=== PATIENT | male | born 1990 | race Caucasian/White ===

== ENCOUNTER 2022-05-11 08:14 | Outpatient (REF) | payer OTHER, SELFPAY ==
[2022-05-11 11:38] LABS: MANUAL DIFF FLAG NO
[2022-05-11 11:44] LABS: Basophils Percent Auto 0.7 % (0-2); Eosinophils Absolute Auto 0.2 X10*3/uL (0.0-0.4); Eosinophils Percent Auto 5.6 % (0-4); Hematocrit 47.7 % (42.0-52.0); Hemoglobin 16.3 g/dl (14.0-18.0); Lymphocytes Absolute Auto 1.7 X10*3/uL (1.2-4.9); Lymphocytes Percent Auto 39.6 % (20-40); Mean Corpuscular HGB Conc 34.2 g/dl (31.0-36.0); Mean Platelet Volume 9.7 fL (9.4-12.4); Monocytes Absolute Auto 0.4 X10*3/uL (0.1-1.2); Monocytes Percent Auto 9.1 % (2-11); Neutrophils Absolute Auto 1.9 x10*3/uL (2.0-8.3); Platelet Count 246 X10*3/uL (160-400); Red Blood Count 5.82 X10*6/uL (4.60-5.80); Red Cell Distribution Width 11.6 % (11.0-16.0); White Blood Count 4.3 X10*3/uL (4.8-10.8)
[2022-05-11 14:23] LABS: Thyroid Stimulating Hormone 1.58 uIU/mL (0.32-4.0); Vitamin D 25-OH Total 20.2 ng/mL (>30)
[2022-05-11 14:42] LABS: Alanine Aminotransferase 33 U/L (0-40); Albumin Level 4.5 g/dL (3.5-5.0); Alkaline Phosphatase 73 U/L (39-117); Anion Gap 11 (12-20); Aspartate Amino Transferase 24 U/L (5-37); Bilirubin Total 0.9 mg/dL (0.0-1.0); Blood Urea Nitrogen 14 mg/dL (9-16); Calcium 9.7 mg/dL (8.4-10.2); Carbon Dioxide 25 mmol/L (22-29); Chloride 109 mmol/L (96-108); Cholesterol 201 mg/dL; Estimated Glomerular Filt Rate > 60; Glucose Fasting 102 mg/dL (60-99); HDL Cholesterol 36 mg/dL; LDL Cholesterol Calculated 151 mg/dl; Potassium 4.3 mmol/L (3.3-5.1); Sodium 141 mmol/L (135-145); Total Protein 7.1 g/dL (6.5-8.0); Triglycerides 71 mg/dL
== END 2022-05-11 08:15 | disposition home or self-care (01) ==
LOC: HO.HMGCLDS 08:14
PROVIDERS: PCP Internal Medicine; Visit Provider Internal Medicine
DX: Z00.00 Encounter for general adult medical examination without abnormal findings (principal); R13.10 Dysphagia, unspecified
CPT/HCPCS: 36415; 80053; 80061; 82306; 84443; 85025

== ENCOUNTER 2022-06-05 08:10 | Outpatient (REF) | payer SELFPAY ==
--- NOTE | ~2022-06-05 | FL_ITS ---
PROCEDURE: FL BARIUM SWALLOW CLINICAL INFORMATION: Dysphagia. COMPARISON: None TECHNIQUE: Barium swallow examination is performed using fluoroscopic evaluation in addition to multiple fluoroscopic spot views. The patient is imaged both upright and prone and using both thick and thin sulfate along with effervescent granules. Fluoroscopy time: 1.6 minutes DAP: 14.754 Gy-cm2 Images: 46 FINDINGS: Following oral administration of thick barium, barium-coated turkey and thin barium in upright view there is normal propagation of bolus from the oral cavity through the pharynx, esophagus into stomach without any evidence of obstruction, narrowing or stricture. On placing patient prone lying and oral administration of thin barium there is good distention of the entire esophagus without any intraluminal narrowing or extrinsic compression. Transient hiatal hernia is present. FL/FL barium swallow IMPRESSION: Unremarkable barium swallow.
== END 2022-06-05 08:11 | disposition home or self-care (01) ==
LOC: HO.XRAY 08:10
PROVIDERS: PCP Internal Medicine; Visit Provider Internal Medicine
DX: R13.10 Dysphagia, unspecified (principal)
CPT/HCPCS: 74220

== ENCOUNTER 2022-10-03 09:23 | Day surgery (SDC) | payer BC, SELFPAY ==
--- NOTE | 2022-10-02 14:30 | HO.ANESPROP2 ---
Documented by User: Francisca Bassett NP 10/02/22 14:31 HPI - Anesthesia Eval Consult details Narrative: 32yo M for Upper Endoscopy with Balloon Dilitation [facility] Surgical History Surgical History H/O hand surgery History of surgery on arm Social History Social History Patient Tobacco Use Status: Never used Tobacco Use of substances other than those prescribed or required for medical reasons: No Are you DNR?: No Advance Directives: No Advance Directives Information Provided: Yes Meds Allergies Allergy/AdvReac Type Severity Reaction Status Date / Time shellfish derived Allergy Severe Anaphylaxis Verified 09/30/22 16:05 Home Medications Medication Instructions Recorded Confirmed Last Taken Type epinephrine 0.3 mg/0.3 mL IM DAILY PRN Anaphylaxis 10/02/22 10/02/22 Unknown History injection, auto-injector Exam Exam Date and Time: October 02, 2022 1430 Pertinent Lab Results Pertinent Lab Results: Laboratory Tests 05/11/22 05/11/22 08:22 08:22 WBC 4.3 L Hgb 16.3 Hct 47.7 Plt Count 246 Sodium 141 Potassium 4.3 Chloride 109 H Carbon Dioxide 25 BUN 14 Creatinine 1.07 Assessment and Plan Assessment Anesthesia Assessment: Chart Reviewed Documented by User: Daisy John MD 10/03/22 10:34 [facility] Family History Family history of problems with anesthesia: No Surgical History Surgical History H/O hand surgery History of surgery on arm History of Problems with Anesthesia: No Social History Social History Patient Tobacco Use Status: Never used Tobacco Use of substances other than those prescribed or required for medical reasons: No Are you DNR?: No Advance Directives: No Advance Directives Information Provided: Yes Meds Allergies Allergy/AdvReac Type Severity Reaction Status Date / Time shellfish derived Allergy Severe Anaphylaxis Verified 09/30/22 16:05 Home Medications Medication Instructions Recorded Confirmed Last Taken Type epinephrine 0.3 mg/0.3 mL IM DAILY PRN Anaphylaxis 10/02/22 10/02/22 Unknown History injection, auto-injector Exam Airway Mallampati Class: I TM Dist: >3cm Neck ROM: Full Heart: rr Lungs: cts Assessment and Plan Assessment Anesthesia Assessment: Anesthesia Plan Discussed Final Anesthetic Review Family History of Problems with Anesthesia: No History of Problems with Anesthesia: No NPO: Yes ASA Class: II Final Preanesthetic Review: No Changes in Pt Med Stat, Meds/Allgs Chart Reviewed, Consent Obtained/Reviewed and Anes Risks/Benef Reviewed Patient Risk: Low Procedure Risk: Low Anesthetic Plan Anesthetic Plan: MAC: Disposition: Standard PACU
[2022-10-03 09:31] VITALS: BMI 25.8
[2022-10-03 09:46] VITALS: BP 121/79; PULSE 56; RESP 16; TEMP 36.3; O2SAT 98; BMI 25.8
[2022-10-03] MEDS: Lactated Ringers 1,000 ML 100 ML IVCONT (09:52)
[2022-10-03 11:39] VITALS: BP 97/39; PULSE 76; TEMP 37.2; O2SAT 98
--- NOTE | 2022-10-03 11:47 | P.BOP_ITS ---
Brief Operative Note Date of Service: 10/03/22 Pre-op diagnosis: Dysphagia Post-op diagnosis: other (GERD, Hiatal hernia, R/O EoE) Procedure: EGD with balloon dilation with 18 to 19mm balloon, and biopsies Surgeon: Tavo Peres Anesthesia: MAC Was an Customer Engagement Manager used for this Procedure?: No Estimated blood loss (mL): 3.0 Pathology: other (A. Esophagus 20-25cm) Condition: stable Disposition: PACU
[2022-10-03 11:54] VITALS: BP 110/68; PULSE 64; RESP 16; TEMP 37.2; O2SAT 98
--- NOTE | 2022-10-03 22:53 | OP_ITS ---
DATE OF SERVICE: 10/03/2022 SURGEON: Tavo Peres MD INDICATIONS: The patient present for evaluation of dysphagia. Full consent was obtained from him for this, including risks of bleeding and perforation. PREOPERATIVE DIAGNOSIS: Dysphagia. POSTOPERATIVE DIAGNOSIS: PROCEDURE PERFORMED: ESTIMATED BLOOD LOSS: COMPLICATIONS: ANESTHESIA: Monitored anesthesia care. ASSISTANTS: SPECIMENS: POSTOPERATIVE DIAGNOSES: Dysphagia, gastroesophageal reflux, small hiatal hernia, rule out eosinophilic esophagitis. PROCEDURE IN DETAIL: The patient was placed in the left lateral decubitus position. The Olympus video gastroscope was passed in the posterior oropharynx and upper esophagus under direct vision. The scope was passed slowly to the distal esophagus. The gastroesophageal junction appeared at 36 cm. There was some evidence of some edema and erythema, but no definitive evidence of Berumen's esophagus, esophagitis, esophageal ring, nor esophageal stricture. The scope easily entered the stomach. There is a small hiatal hernia. The scope was advanced to the pylorus and the duodenum was cannulated to the descending portion. The duodenum including the bulb appeared normal without mass or ulceration. The scope was withdrawn back in the stomach. The gastric antrum and body appeared normal with good peristalsis. The scope was retroflexed visualizing the proximal stomach carefully which appeared normal, without any sign of mass nor ulceration. The scope was straightened out and withdrawn back to the esophagus. Given his symptomatology, I did use a [place] scientific incremental balloon to dilate the gastroesophageal junction from 18 mm to 19 mm at the recommended pressure for between 30 and 60 seconds each. Post-dilation, there was definitely some heme and some disruption of the EG junction. The scope was withdrawn through the remainder of the esophagus. At the very proximal esophagus there did appear to be some of what appeared to be furrowing of the mucosa, but without any esophageal rings. Biopsies were obtained between 20 and 25 cm. The scope was withdrawn from the patient. He tolerated the procedure well and was returned to the recovery area in stable condition. IMPRESSION: 1. Small hiatal hernia, gastroesophageal reflux, status post balloon dilation of gastroesophageal junction. 2. Rule out eosinophilic esophagitis. PLAN: Results of biopsies will be checked. He was advised not to use any aspirin or NSAIDs for at least 1 week. He will start omeprazole 40 mg daily for at least 1 month to see if that gives him any symptomatic improvement as well. Depending on the biopsy findings and his clinical course, he may need esophageal motility studies if his dysphagia persists. He will otherwise see me in the office for followup. PROCEDURES PERFORMED: Esophagogastroduodenoscopy with balloon dilation of gastroesophageal junction and biopsies. MD DIYA Oneil/LESLEY / [id number] MTDD
== END 2022-10-03 12:45 | disposition home or self-care (01) ==
PROVIDERS: PCP Internal Medicine; Visit Provider Internal Medicine
PROC: (CPT 43249; principal; 2022-10-03 10:30)
DX: R13.19 Other dysphagia (principal); K20.80 Other esophagitis without bleeding; K21.9 Gastro-esophageal reflux disease without esophagitis; K44.9 Diaphragmatic hernia without obstruction or gangrene
CPT/HCPCS: 43249; 43239; 88305; C1726

== ENCOUNTER 2024-03-20 09:34 | Outpatient (REF) | payer BC, SELFPAY ==
[2024-03-20 13:20] LABS: MANUAL DIFF FLAG NO
[2024-03-20 13:33] LABS: Basophils Absolute Auto 0.1 X10*3/uL (0.0-0.2); Basophils Percent Auto 0.9 % (0-2); Eosinophils Absolute Auto 0.3 X10*3/uL (0.0-0.4); Eosinophils Percent Auto 4.4 % (0-4); Hemoglobin 16.1 g/dl (14.0-18.0); Imm Gran Abs Auto 0.02 X10*3/uL (0.00-0.03); Imm Gran Pct Auto 0.4 % (0.0-0.4); Lymphocytes Absolute Auto 1.4 X10*3/uL (1.2-4.9); Mean Corpuscular HGB Conc 34.3 g/dl (31.0-36.0); Mean Corpuscular Hemoglobin 29.3 pg (27.0-33.0); Mean Corpuscular Volume 85.6 fL (80.0-98.0); Mean Platelet Volume 9.5 fL (9.4-12.4); Monocytes Absolute Auto 0.5 X10*3/uL (0.1-1.2); Monocytes Percent Auto 8.7 % (2-11); Neutrophils Absolute Auto 3.4 x10*3/uL (2.0-8.3); Neutrophils Percent Auto 60.6 % (45-73); Platelet Count 269 X10*3/uL (160-400); Red Blood Count 5.49 X10*6/uL (4.60-5.80); Red Cell Distribution Width 11.9 % (11.0-16.0); White Blood Count 5.6 X10*3/uL (4.8-10.8)
[2024-03-20 14:19] LABS: Alanine Aminotransferase 38 U/L (0-40); Albumin Level 4.5 g/dL (3.5-5.0); Alkaline Phosphatase 68 U/L (39-117); Aspartate Amino Transferase 31 U/L (5-37); Bilirubin Total 0.6 mg/dL (0.0-1.0); Blood Urea Nitrogen 16 mg/dL (9-16); Cholesterol 196 mg/dL (<200); Estimated Glomerular Filt Rate > 60; Glucose Fasting 102 mg/dL (60-99); HDL Cholesterol 46 mg/dL (>40); LDL Cholesterol Calculated 133 mg/dL (<100); Thyroid Stimulating Hormone 1.28 uIU/mL (0.32-4.0); Total Protein 7.7 g/dL (6.5-8.0); Triglycerides 86 mg/dL (<150); Vitamin D 25-OH Total 55.1 ng/mL (>30)
[2024-03-20 14:36] LABS: Anion Gap 10 (12-20); Carbon Dioxide 26 mmol/L (22-29); Chloride 108 mmol/L (96-108); Potassium 4.1 mmol/L (3.3-5.1); Sodium 140 mmol/L (135-145)
== END 2024-03-20 09:35 | disposition home or self-care (01) ==
LOC: HO.HMGCLDS 09:34
PROVIDERS: PCP Internal Medicine; Visit Provider Internal Medicine
DX: Z00.00 Encounter for general adult medical examination without abnormal findings (principal); R13.10 Dysphagia, unspecified; E78.00 Pure hypercholesterolemia, unspecified; E55.9 Vitamin D deficiency, unspecified; J30.9 Allergic rhinitis, unspecified
CPT/HCPCS: 36415; 80053; 80061; 82306; 84443; 85025

== ENCOUNTER 2025-03-10 10:15 | Outpatient (AMB) | payer BC, SELFPAY ==
--- NOTE | 2025-03-10 10:17 | A.OFFPC_ITS ---
Vital Signs 03/10/25 10:24 Height 5 ft 11.54 in Weight 203 lb BMI 27.9 BP 117/73 Blood Pressure Location Lt brachial Position Sitting Pulse 64 Pulse Source Pulse Oximeter Temp 97.2 F Temp Source Temporal Artery Scan Pulse Oximetry (%) 98 Oxygen Delivery Method Room Air Intake Visit Reasons: physical Intake Note: has bump under left eye x 9 months. Accompanied by: Self / Same As Patient Allergies shellfish derived Allergy (Severe, Verified 03/10/25 10:55) Anaphylaxis Medication List - Last Reconciled 03/10/25 by Quita Langley PA-C epinephrine 0.3 mL IM DAILY PRN omeprazole 20 mg PO QAM Tobacco use date assessed: 03/10/25 Dental Screening Dental Screen Date: 03/10/25 Did you have a dental visit in the last 12 months?: No HPI physical HPI Details The patient is a 35-year-old male presenting for a routine physical examination. He reports noticing a skin condition under his eyes since the middle to end of last winter, which may be telangiectasia, a benign condition involving small dilated blood vessels. The patient has a history of hyperlipidemia, with LDL cholesterol levels decreasing from 151 mg/dL in 2021 to 133 mg/dL currently. He is advised to manage this through dietary changes rather than medication at this time. A possible heart murmur was noted during auscultation, characterized by a strong lub-dub sound, potentially related to cholesterol levels. An ultrasound of the heart is planned to further evaluate this finding. The patient has a shellfish allergy, for which he carries an EpiPen. He reports no issues with medication adherence. Family history is significant for breast cancer on the maternal side, with both his aunt and grandmother affected. There is also a family history of prostate issues, prompting the decision to conduct a PSA screening. 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 - Family status: with a child ex pected next month. - Family planning: Expecting a baby boy. [facility] Medical History (Updated 03/10/25 @ 10:58 by Quita Langley PA-C) Preventative health care History of allergy to shellfish Hyperlipidemia LDL goal <100 Annual physical exam GERD (gastroesophageal reflux disease) Heart murmur Telangiectasia Surgical History H/O hand surgery History of surgery on arm Family History Mother No problems noted. Father Aorta disorder Prostate cancer Social History Housing: House Patient Tobacco Use Status: Never used Tobacco service: No Current occupational status: employed Cognitive needs: No Hearing needs: No Vision needs: No Questionnaire PHQ-9 Over the last 2 weeks, how often have you been bothered by any of the following problems? 1. Little interest or pleasure in doing things: not at all 2. Feeling down, depressed, or hopeless: not at all 3. Trouble falling or staying asleep, or sleeping too much: not at all 4. Feeling tired or having little energy: not at all 5. Poor appetite or overeating: not at all 6. Feeling bad about yourself - or that you are a failure or have let yourself or your family down: not at all 7. Trouble concentrating on things, such as reading the newspaper or watching television: not at all 8. Moving or speaking so slowly that other people could have noticed. Or the opposite - being so fidgety or restless that you have been moving around a lot more than usual: not at all 9. Thoughts that you would be better off or of hurting yourself in some way: not at all Total score: 0 Depression Screening Interpretation: Negative Depression Screening Done: Yes 36102 - PHQ-9 Billing: Yes Source: Developed by Drs. Tavo Mckeon, Zuri Enrique, Reggie Ellis and colleagues, with an educational willie from [employer]. Thrive Questionnaire Date Thrive assessed: 03/10/25 I am a: Patient What is your living situation today?: I have a steady place to live Within the past 12 months, did the food you bought not last and you didn't have the money to get more?: Never true Within the past 12 months, did you worry whether your food would run out before you got money to buy more?: Never true Do you have trouble paying for medicines?: No Do you have trouble getting transportation to medical appointments?: No Do you have trouble paying your heating and electricity bill?: No Do you have trouble taking care of your child, family member or friend?: No Do you have trouble with day-to-day activities such as bathing, preparing meals, shopping, managing finances, etc.?: No Are you currently unemployed and looking for a job?: No Are you interested in more education?: No Please select the resources that you would like help with: None THRIVE Score: 0 AUDIT C Alcohol Use Questionnaire (AUDIT-C) 1. How often do you have a drink containing alcohol?: Monthly or less Total Score: 1 Score Reviewed/Action Taken: No JOCELYNE-7 AMB Questionnaire JOCELYNE-7 Date JOCELYNE - 7 assessed: 03/10/25 Feeling nervous, anxious, or on edge: 0 = Not at all Not being able to stop or control worryin = Not at all Worrying too much about different things: 0 = Not at all Trouble relaxin = Not at all Being so restless that it is hard to sit still: 0 = Not at all Becoming easily annoyed or irritable: 0 = Not at all Feeling afraid as if something awful might happen: 0 = Not at all Total JOCELYNE-7 score (0-4 normal; 5-9 mild; 10-14 moderate; 15-21 severe): 0 Source: Developed by Drs. Tavo Mckeon, Zuri Enrique, Reggie Ellis and colleagues, with an educational willie from [employer]. JOCELYNE-7 Assessment Billing JOCELYNE-7 Assessment Tool: JOCELYNE-7 Assessment 07495 Review of Systems Const Details: - General: Denies unintentional weight loss. - Cardiovascular: Denies chest pain. - Respiratory: Denies dyspnea on exertion. - Gastrointestinal: Denies black or bloody stools. - Genitourinary: Denies hematuria or difficulty urinating. - Dermatological: Reports skin condition under eyes since last winter. - Neurological: Denies recent falls. All systems reviewed & are unremarkable except as noted in HPI and below Physical exam (Primary Care) Vital Signs: Last Vital Signs Temp 97.2 F 03/10/25 10:24 Pulse 64 03/10/25 10:24 BP 117/73 03/10/25 10:24 Pulse Ox 98 03/10/25 10:24 Oxygen Delivery Method Room Air 03/10/25 10:24 Care Plan Goal for BP management: <140/90 at Goal BMI result Body Mass Index 27.9 BMI Assessment/Plan discussion: High BMI High, discussed plan: lifestyle, weight reduction, dietary, physical activity, alcohol moderation and other Tobacco/Smoking Status: Tobacco use Status Tobacco use date assessed 03/10/25 03/10/25 10:21 Patient Tobacco Use Status Never used Tobacco 03/10/25 10:21 PHQ-9: PHQ-9 Score PHQ-9: Total score 0 03/10/25 10:32 Depression Screening Interpretation: Negative Thrive Assessment: Date of Thrive Assessment Date Thrive assessed 03/10/25 03/10/25 10:21 Const Other: Appearance: Alert. Oriented X3. No acute distress. Head: Normal external exam. Normocephalic. Atraumatic. Eyes: Pupils are equal, round, and reactive to light. Extraocular movements intact. Conjunctiva and sclera normal. Eyelids normal. Ears: External auditory canal normal. Tympanic membranes normal. Throat: Pharynx normal. Uvula midline. Moist mucous membranes. Neck: Normal inspection. Neck supple. Full range of motion. No adenopathy. Thyroid Normal. No meningeal signs. No neck mass noted. Cardiovascular: Normal heart rate and rhythm. Heart sound normal. No murmurs noted. Pulses normal throughout. However, a possible heart murmur was noted, with a suggestion of thickening related to cholesterol. An ultrasound of the heart is recommended. Respiratory: No respiratory distress. Painless inspiration. Breath sounds normal. No wheezes/rales/rhonchi noted. Chest nontender. No accessory muscle usage noted or decreased air movement noted. Abdomen: Soft and nontender. Bowel sounds normal in all 4 quadrants. No distention noted. No organomegaly noted. No visible injury noted. Back: No costovertebral angle tenderness. Full range of motion noted. Skin: Skin warm and dry. Normal skin color. Normal skin turgor. Telangiectasia u nder left periorbital area. No additional rashes/lesions/lacerations noted. Extremities: No lower extremity edema. Extremities exhibit normal range of motion. Extremities nontender. Neuro: Oriented X 3. No motor deficit. No sensory deficit. Reflexes normal. Office Procedures Flu Questionnaire Does the patient have a severe egg allergy?: No Does the patient have severe life threatening allergies?: No Does the patient have a fever or illness today?: No Has the patient ever had Guillain-Gruver Syndrome?: No Has the patient ever had any past reaction to a flu shot?: No Immunizations Fluarix [id number] (PF) 45 mcg (15 mcg x 3)/0.5 mL IM syringe Performing Provider: Quita Langley PA-C [facility] Documented (not given) by: Teresa Ackerman CMA on 03/10/25 10:33 Reason Not Given: Patient Refused Results Reviewed Results Reviewed: - Labs: Previous CBC normal, fasting glucose slightly elevated at 102 mg/dL, LDL cholesterol decreased from 151 mg/dL to 133 mg/dL. Coding Level of Care Code New Pt Level 4 (21935) New Pt Prev Care 18-39yr(51495 Diagnoses Annual physical exam Z00.00 Telangiectasia I78.1 Hyperlipidemia LDL goal <100 E78.5 Heart murmur R01.1 GERD (gastroesophageal reflux disease) K21.9 History of allergy to shellfish Z91.013 Preventative health care Z00.00 Additional Codes PHQ-9 - 40695 - PHQ-9 Billing: Yes ([id number]) JOCELYNE-7 Assessment Billing - JOCELYNE-7 Assessment Tool: JOCELYNE-7 Assessment 37828 ([id number]) Time Spent (min) 45 Assessment & Plan Assessment & Plan (1) Annual physical exam: Code(s): Z00.00 - Encounter for general adult medical examination without abnormal findings Category: Medical (2) Telangiectasia: Code(s): I78.1 - Nevus, non-neoplastic Category: Medical Plan: The patient will be referred to dermatology for further evaluation of the skin condition under his eyes, suspected to be telangiectasia. (3) Hyperlipidemia LDL goal <100: Code(s): E78.5 - Hyperlipidemia, unspecified Category: Medical Plan: The patient is advised to manage hyperlipidemia through dietary modifications, with a focus on reducing intake of sugars and refined carbohydrates. If cholesterol levels remain elevated, pharmacological intervention may be considered in the future. (4) Heart murmur: Code(s): R01.1 - Cardiac murmur, unspecified Category: Medical Plan: An ultrasound of the heart will be ordered to evaluate the possible heart murmur detected during auscultation. (5) GERD (gastroesophageal reflux disease): Code(s): K21.9 - Gastro-esophageal reflux disease without esophagitis Category: Medical Plan: Patient reports he needs a new referral to Gastroenterology for his chronic medical condition GERD. Referral placed at this time. Condition is chronic and stable. (6) History of allergy to shellfish: Code(s): Z91.013 - Allergy to seafood Category: Medical Plan: The patient should continue carrying an EpiPen for his shellfish allergy. Refill sent at this time. (7) Preventative health care: Code(s): Z00.00 - Encounter for general adult medical examination without abnormal findings Category: Medical Plan: A PSA screening will be conducted due to the patient's family history of prostate issues. Plan Plan Patient was informed and verbally consented to the use of an ambient scribe for clinic note documentation during this visit. 1. Telangiectasia The patient will be referred to dermatology for further evaluation of the skin condition under his eyes, suspected to be telangiectasia. 2. Hyperlipidemia The patient is advised to manage hyperlipidemia through dietary modifications, with a focus on reducing intake of sugars and refined carbohydrates. If cholesterol levels remain elevated, pharmacological intervention may be considered in the future. 3. Possible Heart Murmur An ultrasound of the heart will be ordered to evaluate the possible heart murmur detected during auscultation. 4. Shellfish Allergy The patient should continue carrying an EpiPen for his shellfish allergy. 5. Preventative Care: Psa Screening A PSA screening will be conducted due to the patient's family history of prostate issues. During the visit, we discussed the patient's skin condition, which may be telangiectasia, and the plan to refer him to dermatology for further evaluation. We reviewed his hyperlipidemia, emphasizing dietary changes to manage cholesterol levels and considering medication if necessary in the future. A possible heart murmur was noted, and an ultrasound of the heart will be ordered to investigate further. The patient was advised to continue carrying an EpiPen for his shellfish allergy. Given his family history, a PSA screening was recommended to monitor for prostate issues. Orders: Orders Influenza [id number] Immunization Today Z23 - Encounter for immunization Comprehensive [place]. Panel Fast Today Z00.00 - Encounter for general adult medical examination without abnormal findings Hemoglobin A1c Today Z00.00 - Encounter for general adult medical examination without abnormal findings Lipid Panel Today Z00.00 - Encounter for general adult medical examination without abnormal findings Magnesium Today Z00.00 - Encounter for general adult medical examination witho ut abnormal findings Vitamin B12 and Folate Today Z00.00 - Encounter for general adult medical examination without abnormal findings Vitamin D 25-OH Total Today Z00.00 - Encounter for general adult medical examination without abnormal findings PSA,Total (Free>4and<10) Today Z00.00 - Encounter for general adult medical examination without abnormal findings CA echo transthoracic complete Today R01.1 - Cardiac murmur, unspecified C Reactive Protein Today Z00.00 - Encounter for general adult medical examination without abnormal findings Complete Blood Count Auto Diff Today Z00.00 - Encounter for general adult medical examination without abnormal findings Liver Panel Today Z00.00 - Encounter for general adult medical examination without abnormal findings TSH reflex Free T4 Today Z00.00 - Encounter for general adult medical examination without abnormal findings UA CC w/rflx Micro + Cult Today Z00.00 - Encounter for general adult medical examination without abnormal findings Referrals Gastroenterology Referral K21.9 - Gastro-esophageal reflux disease without esophagitis Dermatology Referral I78.1 - Nevus, non-neoplastic Medications: Changed From epinephrine IM DAILY PRN To epinephrine 0.3 mL IM DAILY PRN 2 ea 3RF Anaphylaxis Patient Instructions: - Schedule an appointment with dermatology for evaluation of the skin condition under your eyes. - Follow dietary recommendations to manage cholesterol levels, focusing on reducing sugars and refined carbohydrates. - Continue carrying an EpiPen for shellfish allergy. - Attend the scheduled PSA screening due to family history of prostate issues. - Undergo the ordered ultrasound of the heart to evaluate the possible murmur. - Complete fasting blood work as instructed, avoiding food and drink for 10-12 hours prior.
[2025-03-10 10:24] VITALS: BP 117/73; PULSE 64; TEMP 36.2; O2SAT 98; BMI 27.9
== END 2025-03-10 10:54 | disposition home or self-care (01) ==
LOC: HO.HMCSH 10:15
PROVIDERS: PCP Physician Assistant Medical; Visit Provider Physician Assistant Medical
DX: Z00.00 Encounter for general adult medical examination without abnormal findings (principal); R01.1 Cardiac murmur, unspecified; I78.1 Nevus, non-neoplastic; E78.5 Hyperlipidemia, unspecified; K21.9 Gastro-esophageal reflux disease without esophagitis; Z91.013 Allergy to seafood

== ENCOUNTER → 2025-03-10 10:15 | Outpatient (BNVA) | payer BC, SELFPAY | PROVIDERS: PCP Physician Assistant Medical; Visit Provider Physician Assistant Medical | DX: Z00.00 Encounter for general adult medical examination without abnormal findings (principal); E78.5 Hyperlipidemia, unspecified; I78.1 Nevus, non-neoplastic; R01.1 Cardiac murmur, unspecified; K21.9 Gastro-esophageal reflux disease without esophagitis; Z91.013 Allergy to seafood; Z20.821 Contact with and (suspected) exposure to Zika virus | CPT/HCPCS: 96127 ==

== ENCOUNTER 2025-04-16 07:11 | Outpatient (REF) | payer BC, SELFPAY ==
[2025-04-16 10:04] LABS: MANUAL DIFF FLAG NO
[2025-04-16 10:14] LABS: Appearance Urine Clear; Glucose Urine UA Negative (Negative); Hematocrit 46.2 % (42.0-52.0); Hemoglobin 15.8 g/dl (14.0-18.0); Imm Gran Abs Auto 0.01 X10*3/uL (0.00-0.03); Imm Gran Pct Auto 0.2 % (0.0-0.4); Lymphocytes Absolute Auto 1.4 X10*3/uL (1.2-4.9); Mean Corpuscular HGB Conc 34.2 g/dl (31.0-36.0); Mean Corpuscular Hemoglobin 28.9 pg (27.0-33.0); Mean Corpuscular Volume 84.6 fL (80.0-98.0); NRBC Abs Auto 0.000 X10*3/uL (0.0-0.012); NRBC Pct Auto 0.0 /100WBC (0.0-0.2); PH 7.0 (5.0-9.0); Platelet Count 253 X10*3/uL (160-400); Red Blood Count 5.46 X10*6/uL (4.60-5.80); Specific Gravity - Urine 1.025 (1.005-1.025); White Blood Count 4.1 X10*3/uL (4.8-10.8)
[2025-04-16 10:57] LABS: PSA,Total (Free>4and<10) 0.76 ng/mL (0.00-4.00)
[2025-04-16 11:14] LABS: Alanine Aminotransferase 41 U/L (0-40); Albumin Level 4.8 g/dL (3.5-5.0); Alkaline Phosphatase 64 U/L (39-117); Anion Gap 8 (12-20); Aspartate Amino Transferase 28 U/L (5-37); Blood Urea Nitrogen 18 mg/dL (9-16); Calcium 9.5 mg/dL (8.4-10.2); Carbon Dioxide 27 mmol/L (22-29); Chloride 109 mmol/L (96-108); Cholesterol 202 mg/dL (<200); Estimated Glomerular Filt Rate > 60; HDL Cholesterol 40 mg/dL (>40); Magnesium 2.2 mg/dL (1.6-2.6); Potassium 4.1 mmol/L (3.3-5.1); Sodium 140 mmol/L (135-145); Total Protein 7.4 g/dL (6.5-8.0); Triglycerides 96 mg/dL (<150)
[2025-04-16 11:16] LABS: Folate 7.1 ng/mL (> or = 4.0); Vitamin B12 523 pg/mL (200-900)
== END 2025-04-16 07:12 | disposition home or self-care (01) ==
LOC: HO.HMGCLDS 07:11
PROVIDERS: PCP Physician Assistant Medical; Visit Provider Physician Assistant Medical
DX: Z00.00 Encounter for general adult medical examination without abnormal findings (principal); Z12.5 Encounter for screening for malignant neoplasm of prostate; Z13.6 Encounter for screening for cardiovascular disorders; Z13.1 Encounter for screening for diabetes mellitus; Z13.29 Encounter for screening for other suspected endocrine disorder
CPT/HCPCS: 36415; 80053; 80061; 80076; 81003; 82248; 82306; 82607; 82746; 83036; 83735; 84153; 84443; 85025; 86140